=== PATIENT | female | born 1995 | race Caucasian/White ===

== ENCOUNTER 2021-03-10 21:36 | Emergency (ER) | payer OTHER ==
[~2021-03-10] VITALS: Ht 154.9 cm; Wt 62.1 kg
== END 2021-03-10 22:30 | disposition left against medical advice (07) ==
LOC: ER 21:48
DX: R42 Dizziness and giddiness (principal); R05.9 Cough, unspecified; Z53.21 Procedure and treatment not carried out due to patient leaving prior to being seen by health care provider